=== PATIENT | female | born 1990 | race Caucasian/White ===

== ENCOUNTER 2022-02-08 16:39 | Emergency (ER) | payer BC, SELFPAY ==
[2022-02-08 16:47] VITALS: BP 127/70; PULSE 84; RESP 18; TEMP 36.8; O2SAT 100
--- NOTE | 2022-02-08 17:12 | ED.URI ---
HPI - URI/Sore Throat General Chief Complaint: Upper Respiratory Infection Stated Complaint: Body Aches,Sore Throat Time Seen by Provider: 02/08/22 16:54 Source: patient and RN notes reviewed Mode of arrival: ambulatory Limitations: no limitations History of Present Illness HPI Narrative: Patient presents today complaining of body aches, congestion, sore throat, chills since yesterday with 1 episode of vomiting. She has had no vomiting today. Denies fever, cough, rhinorrhea. Reports her is ill with similar symptoms. She currently rates her sore throat 2/ and has been taking Tylenol and ibuprofen with some relief. MD elicited complaint: sore throat Related Data Home Medications Medication Instructions Recorded Confirmed bupropion HCl 100 mg PO DAILY 02/08/22 02/08/22 topiramate 25 mg PO BID 02/08/22 02/08/22 Allergies Allergy/AdvReac Type Severity Reaction Status Date / Time No Known Allergies Allergy Verified 02/08/22 16:54 Review of Systems Review of Systems: CONSTITUTIONAL: Denies fever, or sweats.+ Body aches, chills EYES: Denies visual changes, redness, or discharge. ENT: Denies rhinorrhea, congestion, or otalgia.+ Sore throat CARDIOVASCULAR: Denies chest pain, palpitations, or edema. RESPIRATORY: Denies cough or dyspnea. GASTROINTESTINAL: Denies abdominal pain, nausea, or diarrhea.+ Vomiting GENITOURINARY: Denies dysuria or hematuria. SKIN: Denies rash, itching, or wounds. MUSCULOSKELETAL: Denies back pain, joint pain, or myalgia. NEUROLOGIC: Denies headache, numbness, tingling, or weakness. PSYCH: Denies depression or anxiety. PMFSH Comments At time of signature, I have reviewed and agree with nursing past medical, surgical, social and family history unless otherwise noted. Please see nursing chart for further information. There is no relevant family history pertinent to the presenting complaint Exam Narrative: GENERAL: Mildly ill-appearing, well-nourished, and in no acute distress. HEAD: Normocephalic, atraumatic. EYES: EOMI. No redness or drainage. Conjunctivae normal. ENT: Mucous membranes pink and moist. Nares clear. No rhinorrhea. TMs normal bilaterally. Throat erythematous with mild edema. No exudate. Uvula midline. NECK: Normal AROM. Supple. Mild left anterior cervical chain lymphadenopathy. CHEST: No respiratory distress. Clear to auscultation. HEART: Regular rate and rhythm. No murmur appreciated. Normal peripheral pulses. EXTREMITIES: Normal range of motion. No edema. SKIN: Warm, dry, no rash. Capillary refill normal. Normal skin turgor. NEURO: No focal deficits. Alert and oriented x3. Gait steady. PSYCH: Normal affect. No signs of depression or anxiety. Course Course Level of Care: Express Care Visit Vital Signs Vital signs: Vital Signs Temperature 98.2 F 02/08/22 16:47 Pulse Rate 84 02/08/22 16:47 Respiratory Rate 18 02/08/22 16:47 Blood Pressure 127/70 02/08/22 16:47 Pulse Oximetry 100 02/08/22 16:47 Temperature 98.2 F 02/08/22 16:47 Pulse Rate 84 02/08/22 16:47 Respiratory Rate 18 02/08/22 16:47 Blood Pressure 127/70 02/08/22 16:47 Pulse Oximetry 100 02/08/22 16:47 Reviewed. Pt has been instructed to follow up with her PCP regarding her elevated blood pressure today. MDM - URI/Sore Throat Differential Diagnosis Differential diagnosis: Likely upper respiratory infection, viral infection, influenza, pharyngitis and other (Strep throat) Lab Data Attestation: I reviewed the patient's lab results. Labs: Influenza A Screen Negative Reference Range: Negative Influenza B Screen Negative Reference Range: Negative Strep Screen Presumptive Negative *(Reference Range: Negative)* Strep Screen Presumptive Negative
== END 2022-02-08 17:17 | disposition home or self-care (01) ==
PROVIDERS: Emergency Provider Nurse Practitioner; PCP Family Medicine
DX: J02.0 Streptococcal pharyngitis (principal)
CPT/HCPCS: 87081; 87147; 87804; 87880; 99213; G0463

== ENCOUNTER 2023-09-28 09:10 | Emergency (ER) | payer BC, SELFPAY ==
--- NOTE | ~2023-09-28 | XR_ITS ---
EXAMINATION: XR finger 2nd RT min 2V DATE: 09/28/2023 09:42 INDICATION: Pain and swelling at the right second proximal interphalangeal joint 1 day post injury. TECHNIQUE: Dorsal palmar, lateral and 2 oblique views of the right second digit were obtained COMPARISON: None FINDINGS: Alignment is normal. No fracture. Joint spaces are normal. Mild soft tissue swelling about the second digit. IMPRESSION: 1. No osseous abnormality. Reviewed, dictated and finalized at location A. [employer] MACHINE OPERATOR IMPRESSION: 1. No osseous abnormality.
[2023-09-28 09:28] VITALS: BP 131/84; PULSE 68; RESP 16; TEMP 36.1; O2SAT 100
--- NOTE | 2023-09-28 09:52 | ED.UPPEXIN ---
HPI - Extremity Injury (Upper) General Chief Complaint: Extremity Injury, Upper Stated Complaint: Right Finger Injury Time Seen by Provider: 09/28/23 09:35 Source: patient Mode of arrival: ambulatory Limitations: no limitations History of Present Illness HPI narrative: Coretta is a 32-year-old female patient presenting to the clinic today with complaints of right index finger pain. She reports that she got it caught and twisted and a dog heart is yesterday. Is having pain and swelling over the PIP joint. Related Data Home Medications Medication Instructions Recorded Confirmed bupropion HCl 100 mg tablet 100 mg PO DAILY 02/08/22 02/08/22 topiramate 25 mg tablet 25 mg PO BID 02/08/22 02/08/22 Allergies Allergy/AdvReac Type Severity Reaction Status Date / Time No Known Allergies Allergy Verified 02/08/22 16:54 Review of Systems Review of Systems: Pertinent positives per HPI. Patient denies any fever, chills, rash, headache, visual changes, dizziness, cough, runny nose, sore throat, shortness of breath, chest pain, palpitations, nausea, vomiting, diarrhea, constipation, abdominal pain, or any urinary issues. PMFSH Comments At the time of my signature, I reviewed and agree with the nursing past medical, surgical, social, and family history. There is no relevant family history pertinent to the patient complaint. Exam Narrative: General: Well-developed, well nourished, in no apparent distress Head: Normocephalic, atraumatic. Cardio: Regular rate and rhythm, s1 and s2 normal, no murmur appreciated. Resp: Clear to auscultation bilaterally, no rhonchi, rales, wheezing or rubs. Musculoskeletal: No deformity, tender to palpation over the right index finger PIP joint with mild swelling, is a fever to fully extend the finger but can only flex the finger at 90?, grossly normal range of motion, muscle strength strong and equal, peripheral pulse strong, no edema, no cyanosis, normal gait and station Course Course Emergency Course: Portions of this record may have been created with voice recognition software. Level of Care: Express Care Visit Vital Signs Vital signs: Vital Signs Temperature 36.1 C L 09/28/23 09:28 Pulse Rate 68 09/28/23 09:28 Respiratory Rate 16 09/28/23 09:28 Blood Pressure 131/84 09/28/23 09:28 Pulse Oximetry 100 09/28/23 09:28 Oxygen Delivery Room Air 09/28/23 09:28 Temperature 36.1 C L 09/28/23 09:28 Pulse Rate 68 09/28/23 09:28 Respiratory Rate 16 09/28/23 09:28 Blood Pressure 131/84 09/28/23 09:28 Pulse Oximetry 100 09/28/23 09:28 Oxygen Delivery Room Air 09/28/23 09:28 Vital signs reviewed MDM - Extremity Injury (Upper) MDM Narrative Medical decision making narrative: At the time of visit patient is resting comfortably on the exam table. Patient appears to be nontoxic. Finger x-rays negative for any sign of fracture. I suspect patient has a sprain of the right index finger. Metal finger splint was given. Supportive measures were discussed with the patient and they voiced understanding discharge instructions and agrees to treatment plan. Return precautions reviewed Differential Diagnosis Differential diagnosis: Likely finger sprain, dislocation of finger and other (Finger fracture) Imaging Data Radiologist's impression: ITS Impressions Finger X-Ray 09/28/23 09:44 IMPRESSION: 1. No osseous abnormality. Discharge Plan Discharge Clinical Impression: Finger sprain Qualifiers: Encounter type: initial encounter Sprain of finger site: interphalangeal joint Laterality: right Patient Disposition: Home, Self-Care Condition: Stable Instructions: Antibiotic Form, Finger Sprain (ED) Additional Instructions: X-ray of the right index finger was negative for any sign of fracture or malalignment. Rest, ice, elevate, and wear metal finger splint as directed Tylenol/motrin for pain as discussed. Follow up w
== END 2023-09-28 09:58 | disposition home or self-care (01) ==
PROVIDERS: Emergency Provider Nurse Practitioner Family; PCP Family Medicine
DX: S63.630A Sprain of interphalangeal joint of right index finger, initial encounter (principal); X58.XXXA Exposure to other specified factors, initial encounter; Z86.16 Personal history of COVID-19; Z98.84 Bariatric surgery status
CPT/HCPCS: 29130; 73140; 99213; G0463